=== PATIENT | female | born 1930 | race Caucasian/White ===

== ENCOUNTER 2018-12-25 12:42 | Inpatient (IN) | payer MEDICARE ==
[~2018-12-25] VITALS: Ht 172.7 cm; Wt 77.8 kg
[~2018-12-25 12:42] MED LIST: ALPH300C PO; CALC-455 PO; CEFAZOLIN 1,000 MG ONE; CHOL100012 PO; CIPR500T87 PO; CYAN1TAB29 SL; DEXAMETHASONE 4 MG/ML, 1ML ONE; FLUT16SP NAS; GABA-826 PO; GAVISCON PO; GLUC1CAP40 PO; GLYCOPYRROLATE 0.2MG/1ML, 5ML ONE; KETAMINE 10 MG/ML, 20ML ONE; LEVO75TA5 PO; MAGN1TAB PO; NEOSTIGMINE 1 MG/ML, 10ML ONE; OMEP-110 PO; ONDANSETRON 2MG/ML, 2ML ONE; OXYB5TAB7 PO; OXYC-302 PO; PHEN-418 PO; PROPOFOL 10 MG/ML, 20ML ONE; PSYL1PAC9 PO; ROCURONIUM 10MG/ML,5ML ONE; SIMV20TA3 PO; VITA1TAB3 PO
--- NOTE | 2018-12-25 13:10 | NUR ---
ANTONELLA RN, COVERING MEAL BREAK. REPORT FROM [facility], SEE TRIAGE. RLE IN TRACTION, SHORTENED AND INTERNALLY ROTATED. BLE COOL TO TOUCH, UNABLE TO PALPATE PEDAL PULSE TO RLE. PT PLACED ON BP CUFF, PULSE OX. CALL LIGHT WITHIN REACH. FAMILY AT BS. PT STATES PAIN TOLERABLE AT THIS TIME, RECEIVED 100 MCG FENTANYL TIE FASTENER AND RATES PAIN AT 3/10.
--- NOTE | 2018-12-25 13:18 | NUR ---
RECEIVED REPORT FROM NOA SPARKS. PT TAKEN TO XR IN STABLE CONDITION.
[2018-12-25] MEDS ORDERED: SODIUM CHLORIDE FLUSH 10ML SYR IVF ONE (13:30)
[2018-12-25 13:50] LABS: BASOPHILS # (AUTO) 0.07 x10^3/uL (0-0.1); BASOPHILS % (AUTO) 1 % (0-1); EOSINOPHILS # (AUTO) 0.14 x10^3/uL (0-0.4); EOSINOPHILS % (AUTO) 2 % (1-7); LYMPHOCYTES # (AUTO) 1.35 x10^3/uL (1-3.4); LYMPHOCYTES % (AUTO) 15 % (22-44); MD NO; MEAN CORPUSCULAR HEMOGLOBIN 31.2 pg (27.0-34.8); MEAN CORPUSCULAR HGB CONC 33.9 g/dL (32.4-35.8); MEAN CORPUSCULAR VOLUME 92.1 fL (80-100); MEAN PLATELET VOLUME 7.6 fL (7.4-10.4); MONOCYTES # (AUTO) 0.38 x10^3/uL (0.2-0.8); MONOCYTES % (AUTO) 4 % (2-9); NEUTROPHILS # (AUTO) 7.36 x10^3/uL (1.8-6.8); NEUTROPHILS % (AUTO) 79 % (42-75); PLATELET COUNT 258 x10^3/uL (130-400); RED BLOOD COUNT 4.49 x10^6/uL (3.82-5.3); RED CELL DISTRIBUTION WIDTH 13.4 % (9.6-15.2)
--- NOTE | 2018-12-25 13:55 | NUR ---
PT REMAINS IN XR
[2018-12-25 13:59] LABS: INTERNATIONAL NORMALIZED RATIO 0.97 (0.93-1.1); PROTHROMBIN TIME 10.2 Seconds (9.6-11.5)
[2018-12-25 14:03] LABS: CHLORIDE 107 mmol/L (98-107)
[2018-12-25 14:12] LABS: ALBUMIN 3.6 g/dL (3.4-5.0); ANION GAP 5 mmol/L (5-15); CALCIUM 9.2 mg/dL (8.5-10.1); CREATININE 0.73 mg/dL (0.55-1.02)
[2018-12-25] MEDS ORDERED: HYDROmorphone 1 MG/ML, 1ML ONE (15:13)
[2018-12-25] MEDS ORDERED: ONDANSETRON 2MG/ML, 2ML ONE (15:13)
[2018-12-25] MEDS ORDERED: SODIUM CHLORIDE 0.9% 1,000 ML IV SCH (15:18)
[2018-12-25] MEDS ORDERED: HYDROmorphone 2 MG/ML, 1ML IVPush PRN ×2 (15:30→20:00)
[2018-12-25] MEDS ORDERED: SODIUM CHLORIDE FLUSH 10ML SYR IVF PRN (15:30)
[2018-12-25] MEDS ORDERED: ONDANSETRON 2MG/ML, 2ML IVPush ONE (15:30)
[2018-12-25] MEDS: HEPARIN 5,000 UNITS/ML, 1ML SQ SCH ×2 (15:30→23:57)
[2018-12-25] MEDS ORDERED: ACETAMINOPHEN 325 MG TABLET PO PRN ×2 (15:30→20:00)
[2018-12-25] MEDS ORDERED: LABETALOL 5MG/ML, 20ML IVPush PRN (15:30)
[2018-12-25] MEDS ORDERED: morphine SULFATE 10 MG/ML, 1ML IVPush PRN (15:30)
[2018-12-25] MEDS ORDERED: ONDANSETRON 2MG/ML, 2ML IVPush PRN (15:30)
--- NOTE | 2018-12-25 15:55 | NUR ---
REPORT GIVEN TO RECEIVING RN. ALL QUESTIONS ANSWERED. AWAITING PT TRANSPORT.
[2018-12-25] MEDS ORDERED: FENTANYL PF 250 MCG/5ML ONE (19:28)
[2018-12-25] MEDS ORDERED: MIDAZOLAM 1 MG/ML, 2ML ONE (19:28)
[2018-12-25] MEDS ORDERED: NEOSPORIN OINT, 15GM ONE (19:39)
[2018-12-25 19:46] VITALS: BP 138/77
[2018-12-25] MEDS ORDERED: PROMETHAZINE 25 MG/ML, 1ML IV PRN (20:00)
[2018-12-25] MEDS ORDERED: HALOPERIDOL 5 MG/ML IV PRN (20:00)
[2018-12-25] MEDS ORDERED: MEPERIDINE/PF 25MG/0.5ML IVPush PRN (20:00)
[2018-12-25] MEDS ORDERED: OXYcodone 5 MG/5 ML ORAL.SOL UDC PO PRN (20:00)
[2018-12-25] MEDS ORDERED: hydrALAzine 20 MG/ML, 1ML IV PRN (20:00)
[2018-12-25] MEDS ORDERED: FENTANYL PF 100 MCG/2ML IV PRN (20:00)
[2018-12-25] MEDS: SIMVASTATIN 20 MG TABLET PO SCH (21:00)
[2018-12-25] MEDS: FLUTICASONE NASAL SPRAY 16GM NAS SCH (21:00)
[2018-12-25] MEDS ORDERED: OXYcodone 5 MG/5 ML ORAL.SOL UDC ONE (21:26)
[2018-12-26 00:20] VITALS: BP 129/67
[2018-12-26 04:02] VITALS: BP 113/60
[2018-12-26] MEDS: CEFAZOLIN PMX 1GM/50ML 50 ML IV SCH ×2 (04:41→13:04)
[2018-12-26 05:46] LABS: ANION GAP 6 mmol/L (5-15); CALCIUM 8.2 mg/dL (8.5-10.1); CHLORIDE 109 mmol/L (98-107)
[2018-12-26 05:50] LABS: ALANINE AMINOTRANSFERASE 21 U/L (12-78); ALKALINE PHOSPHATASE 74 U/L (45-117); BILIRUBIN,TOTAL 0.7 mg/dL (0.2-1.0); CREATININE 0.83 mg/dL (0.55-1.02); TOTAL PROTEIN 5.8 g/dL (6.4-8.2)
[2018-12-26 06:05] LABS: BASOPHILS % (AUTO) 0 % (0-1); EOSINOPHILS % (AUTO) 0 % (1-7); LYMPHOCYTES # (AUTO) 0.52 x10^3/uL (1-3.4); LYMPHOCYTES % (AUTO) 7 % (22-44); MD NO; MEAN CORPUSCULAR HEMOGLOBIN 30.7 pg (27.0-34.8); MEAN CORPUSCULAR HGB CONC 33.4 g/dL (32.4-35.8); MEAN PLATELET VOLUME 7.9 fL (7.4-10.4); MONOCYTES # (AUTO) 0.54 x10^3/uL (0.2-0.8); MONOCYTES % (AUTO) 7 % (2-9); NEUTROPHILS # (AUTO) 6.78 x10^3/uL (1.8-6.8); NEUTROPHILS % (AUTO) 87 % (42-75); PLATELET COUNT 223 x10^3/uL (130-400); RED BLOOD COUNT 3.49 x10^6/uL (3.82-5.3); RED CELL DISTRIBUTION WIDTH 13.2 % (9.6-15.2)
[2018-12-26 06:22] LABS: MICROSCOPIC INDICATED
[2018-12-26 06:23] LABS: CULTURE INDICATED? YES
[2018-12-26] MEDS ORDERED: ERGOCALCIFEROL 50,000 UNIT CAPSULE PO SCH (07:30)
[2018-12-26 07:41] VITALS: BP 120/50
[2018-12-26] MEDS: DOCUSATE 100 MG CAPSULE PO SCH ×2 (09:02→20:15)
[2018-12-26] MEDS: HEPARIN 5,000 UNITS/ML, 1ML SQ SCH ×2 (09:02→15:59)
[2018-12-26] MEDS: LEVOTHYROXINE 75 MCG TABLET PO SCH (09:02)
[2018-12-26] MEDS: HYDROcodone/APAP 5/325 TABLET PO PRN ×3 (09:02→20:15)
[2018-12-26] MEDS: SODIUM CHLORIDE 0.9% 1,000 ML IV SCH (09:06)
[2018-12-26 13:34] VITALS: BP 105/63
[2018-12-26] MEDS: CALCIUM CARBONATE 500 MG TAB.CHEW PO PRN (19:17)
[2018-12-26 19:32] VITALS: BP 120/68
[2018-12-26] MEDS: SIMVASTATIN 20 MG TABLET PO SCH (20:15)
[2018-12-26] MEDS: FLUTICASONE NASAL SPRAY 16GM NAS SCH (20:15)
[2018-12-27] MEDS: HEPARIN 5,000 UNITS/ML, 1ML SQ SCH (00:05)
[2018-12-27 00:52] VITALS: BP 114/70
[2018-12-27 04:25] VITALS: BP 127/68
[2018-12-27] MEDS: SODIUM CHLORIDE 0.9% 1,000 ML IV SCH (04:35)
[2018-12-27 08:00] VITALS: BP 127/66
[2018-12-27] MEDS: DOCUSATE 100 MG CAPSULE PO SCH ×2 (09:02→19:34)
[2018-12-27] MEDS: LEVOTHYROXINE 75 MCG TABLET PO SCH (09:03)
[2018-12-27] MEDS: ENOXAPARIN 40 MG/0.4 ML SQ SCH (09:03)
[2018-12-27] MEDS: CALCIUM CARBONATE 500 MG TAB.CHEW PO PRN (13:34)
[2018-12-27] MEDS: HYDROcodone/APAP 5/325 TABLET PO PRN (13:34)
[2018-12-27 13:54] VITALS: BP 107/47
[2018-12-27] MEDS: TAMSULOSIN 0.4 MG CAP.ER.24H PO SCH (17:24)
[2018-12-27] MEDS: SIMVASTATIN 20 MG TABLET PO SCH (19:34)
[2018-12-27] MEDS: SODIUM CHLORIDE FLUSH 10ML SYR IVF SCH (19:35)
[2018-12-27] MEDS: FLUTICASONE NASAL SPRAY 16GM NAS SCH (19:35)
[2018-12-27 19:45] VITALS: BP 105/49
[2018-12-28 02:00] VITALS: BP 112/53
[2018-12-28] MEDS: HYDROcodone/APAP 5/325 TABLET PO PRN ×2 (07:37→16:26)
[2018-12-28] MEDS: TAMSULOSIN 0.4 MG CAP.ER.24H PO SCH (07:37)
[2018-12-28] MEDS: ENOXAPARIN 40 MG/0.4 ML SQ SCH (07:38)
[2018-12-28] MEDS: MAGNESIUM HYDROXIDE 8%, 30ML UDC PO SCH (07:38)
[2018-12-28] MEDS: DOCUSATE 100 MG CAPSULE PO SCH ×2 (07:38→20:22)
[2018-12-28] MEDS: LEVOTHYROXINE 75 MCG TABLET PO SCH (07:38)
[2018-12-28] MEDS: SODIUM CHLORIDE FLUSH 10ML SYR IVF SCH ×2 (07:38→20:22)
[2018-12-28 08:38] VITALS: BP 100/58
[2018-12-28] MEDS ORDERED: TAMSULOSIN 0.4 MG CAP.ER.24H PO SCH (09:00)
[2018-12-28 11:15] LABS: MICROSCOPIC INDICATED
[2018-12-28 12:00] VITALS: BP 108/62
[2018-12-28] MEDS ORDERED: MAGNESIUM CITRATE 300ML ORAL SOL PO ONE ×2 (13:00→16:30)
[2018-12-28 19:40] VITALS: BP 107/43
[2018-12-28] MEDS: SIMVASTATIN 20 MG TABLET PO SCH (20:22)
[2018-12-28] MEDS: FLUTICASONE NASAL SPRAY 16GM NAS SCH (20:22)
[2018-12-29] MEDS: MAGNESIUM HYDROXIDE 8%, 30ML UDC PO SCH (04:28)
[2018-12-29] MEDS: DOCUSATE 100 MG CAPSULE PO SCH (04:28)
[2018-12-29 05:04] VITALS: BP 116/68
[2018-12-29] MEDS: HYDROcodone/APAP 5/325 TABLET PO PRN ×3 (06:47→14:01)
[2018-12-29] MEDS: TAMSULOSIN 0.4 MG CAP.ER.24H PO SCH (07:04)
[2018-12-29] MEDS: LEVOTHYROXINE 75 MCG TABLET PO SCH (07:04)
[2018-12-29] MEDS: ENOXAPARIN 40 MG/0.4 ML SQ SCH (07:05)
[2018-12-29] MEDS: SODIUM CHLORIDE FLUSH 10ML SYR IVF SCH (07:05)
[2018-12-29 07:20] VITALS: BP 106/57
[2018-12-29] MEDS: CALCIUM CARBONATE 500 MG TAB.CHEW PO PRN (09:57)
[2018-12-29] MEDS ORDERED: CALC200T24 PO (10:05)
[2018-12-29] MEDS ORDERED: TAMS-11 PO (10:05)
[2018-12-29] MEDS ORDERED: ERGO500017 PO (10:05)
[2018-12-29 14:06] VITALS: BP 113/60
[2018-12-29] MEDS ORDERED: HYDR-3240 PO (14:58)
== END 2018-12-29 15:07 | DRG 481 ==
LOC: ED 15:24 → EDIP 15:25 → ED 15:44 → 4NOR 16:45
PROVIDERS: ADMIT Internal Medicine; ATTEND Internal Medicine
PROC: 0T9B70Z Drainage of Bladder with Drainage Device, Via Natural or Artificial Opening (ICD-10-PCS; 2018-12-25)
PROC: 0QS806Z Reposition Right Femoral Shaft with Intramedullary Internal Fixation Device, Open Approach (ICD-10-PCS; principal; 2018-12-25 20:00)
PROC: 2W6NXZZ Traction of Right Upper Leg (ICD-10-PCS; 2018-12-26)
DX: S72.21XA Displaced subtrochanteric fracture of right femur, initial encounter for closed fracture (principal); D62 Acute posthemorrhagic anemia; S72.341A Displaced spiral fracture of shaft of right femur, initial encounter for closed fracture; E03.9 Hypothyroidism, unspecified; E55.9 Vitamin D deficiency, unspecified; E78.00 Pure hypercholesterolemia, unspecified; E78.5 Hyperlipidemia, unspecified; K21.9 Gastro-esophageal reflux disease without esophagitis; K59.00 Constipation, unspecified; M16.11 Unilateral primary osteoarthritis, right hip; R33.9 Retention of urine, unspecified; W18.30XA Fall on same level, unspecified, initial encounter; Y93.89 Activity, other specified; Y92.049 Unspecified place in boarding-house as the place of occurrence of the external cause; Y99.8 Other external cause status; Z85.42 Personal history of malignant neoplasm of other parts of uterus; Z90.710 Acquired absence of both cervix and uterus
CPT/HCPCS: 36415; 71045; 76000; 80048; 80053; 81001; 82040; 82306; 84443; 85025; 85610; 85730; 87086; 93005; 96374; 96375; C1713; G0378; J0690; J1100; J1170; J1644; J1650; J2250; J2405; J2704; J2710; J3010; J3490; J2270; J7030

== ENCOUNTER → 2019-02-05 | Outpatient (CLI) | payer MEDICARE, OTHER ==
[~2019-02-05] MED LIST changes: +CALC200T24 PO; -CEFAZOLIN 1,000 MG ONE; -DEXAMETHASONE 4 MG/ML, 1ML ONE; +ERGO500017 PO; -GLYCOPYRROLATE 0.2MG/1ML, 5ML ONE; +HYDR-3240 PO; -KETAMINE 10 MG/ML, 20ML ONE; -NEOSTIGMINE 1 MG/ML, 10ML ONE; -ONDANSETRON 2MG/ML, 2ML ONE; -PROPOFOL 10 MG/ML, 20ML ONE; -ROCURONIUM 10MG/ML,5ML ONE; +TAMS-11 PO
== END | disposition home or self-care (01) ==
LOC: CFH 12:11
PROVIDERS: ATTEND Family Medicine
DX: M81.0 Age-related osteoporosis without current pathological fracture (principal); M85.89 Other specified disorders of bone density and structure, multiple sites
CPT/HCPCS: 77080